=== PATIENT | female | born 1955 | race Caucasian/White ===

== ENCOUNTER 2020-07-04 01:26 | Emergency (ER) | payer OTHER ==
[~2020-07-04] VITALS: Ht 160 cm; Wt 61.3 kg
[2020-07-04] MEDS ORDERED: LEVO-101 PO (01:55)
[2020-07-04] MEDS ORDERED: TRIA1CAP3 PO (01:56)
[2020-07-04] MEDS ORDERED: MONT10TA49 PO (01:56)
[2020-07-04] MEDS ORDERED: CALC-450 PO (01:57)
[2020-07-04] MEDS ORDERED: VIT D (01:57)
[2020-07-04] MEDS ORDERED: LORA10TA55 PO (01:57)
[2020-07-04] MEDS ORDERED: LINZESS145 MCG PO (01:58)
[2020-07-04] MEDS ORDERED: GABA-585 PO (02:23)
[2020-07-04] MEDS ORDERED: CYCL5TAB PO (02:23)
[2020-07-04] MEDS ORDERED: LIDO700A21 TP (02:23)
--- NOTE | 2020-07-04 02:26 | PHYS DOC ---
Past Medical History Past Medical History: Hypothyroid Past Surgical History: , Tonsillectomy Additional Past Surgical Histo: "BENJAMIN TUCK" Smoking Status: Never Smoker Alcohol Use: None General Adult EDM: Chief Complaint: UPPER EXTREMITY INJURY HPI: HPI: 65-year-old female who presents for evaluation of proximal right upper extremity pain, atraumatic. On May 23, she underwent MRI of her cervical spine that revealed degenerative disc disease most prominent at C5/C6, greatest in the right. She is currently on a steroid Dosepak, [place], low-dose gabapentin. She reports ongoing and worsening pain. The pain radiates from the right neck, around the right shoulder and scapula and ends just proximal to the antecubital fossa. She has previously been evaluated by Dr. Jackson. Review of Systems: Review of Systems: Gen: No fever, chills. Eyes: No blurred vision, diplopia. ENT: No nasal congestion, sore throat. CV: No CP, palpitations. Resp. No SOB, cough. GI: No abd pain, N/V. Neuro: No ALVAREZ, dizziness, weakness. MSK: No neck or back pain. Reports proximal right upper extremity pain. Skin: No acute rash or lesion. Heart Score: Risk Factors: Risk Factors: DM, Current or recent (<one month) smoker, HTN, HLP, family history of CAD, obesity. Risk Scores: Score 0 - 3: 2.5% MACE over next 6 weeks - Discharge Home Score 4 - 6: 20.3% MACE over next 6 weeks - Admit for Clinical Observation Score 7 - 10: 72.7% MACE over next 6 weeks - Early Invasive Strategies Allergies: Allergies: Allergies Coded Allergies Type Severity Reaction Last Updated Verified latex Allergy Intermediate HIVES BLISTERS RASH 07/04/20 Yes Physical Exam: PE: Gen: NAD. Well nourished. Head: NC/AT. Eyes: No scleral icterus. No conjunctival injection. ENT: MMM. Posterior OP clear. Neck: Supple. NT. No JVD. CV: RRR Peripheral pulses intact. Resp: CTAB. MSK: No peripheral cyanosis. No edema. No focal tenderness of the proximal right upper extremity, no acute skin changes. No midline neck tenderness. Full AROM of RUE. Neuro: A&Ox3. Strength & sensation grossly intact throughout. Skin. Warm. Dry. No acute rash. Psych: Appropriate mood & affect. Current Patient Data: Vital Signs: Vital Signs Date Time Temp Pulse Resp B/P (MAP) Pulse Ox O2 Delivery O2 Flow Rate FiO2 07/04/20 01:49 98.1 86 20 130/75 (93) 97 Room Air 98.1 EKG: EKG: [] Radiology/Procedures: Radiology/Procedures: [] Course & Med Decision Making: Course & Med Decision Making In summary, 65-year-old female who presents for evaluation of worsening neuro pathic pain from a disc protrusion at C5-6 on MRI in May 23. Currently on low-dose gabapentin, [place], steroid Dosepak. Will be administered low-dose Flexeril, IM morphine, lidocaine patch. Will titrate her gabapentin dose to 300 mg 3 times daily, with the addition of prescribed lidocaine patch and Flexeril. Outpatient follow-up with Dr. Jackson. Return precautions given. Dragon Disclaimer: Dragon Disclaimer: This electronic medical record was generated, in whole or in part, using a voice recognition dictation system. Departure Departure Impression: Primary Impression: Degenerative cervical disc Additional Impression: Neuropathic pain Disposition: HOME, SELF-CARE Condition: STABLE Referrals: BONNY GALAVIZ MD (PCP) RENARD JACKSON MD Patient Instructions: Pain, Neuropathic-Brief Additional Instructions: Increase your gabapentin regimen by taking 100 mg in the morning, 100 mg in the afternoon, and 300 mg at night (either one tab of your 300 mg tabs, or three tabs of your 100 mg tabs). Continue your previously prescribed steroid and hydrocodone. Apply the prescribed lidocaine patch. Take the prescribed muscle relaxant as needed (cyclobenzaprine/flexeril). Please follow up with Dr. Jackson. Scripts Cyclobenzaprine Hcl (CYCLOBENZAPRINE HCL) 5 Mg Tablet 1 TAB PO TID, #30 TAB Prov: LE,SUBHASH H DO 07/04/20 Lidocaine (Lidocaine PATCH ) 1 Each Adh..patch 1 EACH TP DAILY for FOR LOCAL PAIN, #10 PATCH REMOVE AFTER 12 HOURS Prov: LE,SUBHASH H DO 07/04/20 Gabapentin (GABAPENTIN ) 100 Mg Capsule 100 MG PO TID for NEUROGENIC PAIN, #60 CAP Prov: LE,SUBHASH H DO 07/04/20 Justicifation of Admission Dx: Justifications for Admission: Justification of Admission Dx: N/A SUBHASH GUZMAN DO Jul 04, 2020 02:26
[2020-07-04] MEDS ORDERED: MORPHINE SULFATE 4 MG/ML VIAL. IM ONE (02:30)
[2020-07-04] MEDS ORDERED: CYCLOBENZAPRINE 10 MG TABLET. PO ONE (02:30)
[2020-07-04] MEDS ORDERED: LIDOCAINE (700MG/PATCH) PATCH. TD SCH (02:30)
[2020-07-04 03:18] VITALS: BP 131/81
[2020-07-04] MEDS ORDERED: LIDOCAINE (700MG/PATCH) PATCH. TD ONE (03:30)
== END 2020-07-04 03:19 | disposition home or self-care (01) ==
LOC: ER 01:26
DX: M50.30 Other cervical disc degeneration, unspecified cervical region (principal); M79.601 Pain in right arm; G62.9 Polyneuropathy, unspecified; E03.9 Hypothyroidism, unspecified; Z98.890 Other specified postprocedural states; Z91.040 Latex allergy status
CPT/HCPCS: 96372; 99283; J2270

== ENCOUNTER → 2020-07-27 | Outpatient (CLI) | payer OTHER ==
[2020-07-04 03:18] VITALS: BP 131/81
[~2020-07-27] MED LIST: CALC-450 PO; CYCL5TAB PO; DOCU-153 PO; GABA-585 PO; GABA600T7 PO; HYDR-2761 PO; LEVO-101 PO; LIDO700A21 TP; LINZESS145 MCG PO; LORA10TA55 PO; METH750T2 PO; MONT10TA49 PO; TRAM50TA PO; TRIA1CAP3 PO; VIT D; VITA1TAB31 PO
[2020-07-27 11:05] LABS: BASO % 1 % (0-3); EOS # 0.1 x10^3/uL (0.0-0.7); EOS % 3 % (0-3); HEMATOCRIT 39.1 % (36.0-47.0); HEMOGLOBIN 13.1 g/dL (12.0-15.5); LYMPH # 1.1 x10^3/uL (1.0-4.8); LYMPH % 29 % (24-48); MEAN CORPUSCULAR HEMOGLOBIN 31 pg (25-35); MEAN CORPUSCULAR HGB CONC 34 g/dL (31-37); MEAN CORPUSCULAR VOLUME 91 fL (79-100); MONO # 0.4 x10^3/uL (0.0-1.1); MONO % 11 % (0-9); NEUT # 2.2 x10^3/uL (1.8-7.7); NEUT % 57 % (31-73); PLATELET COUNT 261 x10^3/uL (140-400); RED CELL DISTRIBUTION WIDTH 14.2 % (11.5-14.5); WHITE BLOOD COUNT 3.8 x10^3/uL (4.0-11.0)
[2020-07-27 11:30] LABS: ALBUMIN 3.8 g/dL (3.4-5.0); ALBUMIN/GLOBULIN RATIO 1.3 (1.0-1.7); CALCIUM 9.3 mg/dL (8.5-10.1); CREATININE 0.8 mg/dL (0.6-1.0); GFR 72.2; POTASSIUM 3.7 mmol/L (3.5-5.1); TOTAL BILIRUBIN 0.4 mg/dL (0.2-1.0); TOTAL PROTEIN 6.7 g/dL (6.4-8.2)
== END ==
LOC: SURGPAT 09:59
PROVIDERS: ATTEND Neurological Surgery
DX: Z01.812 Encounter for preprocedural laboratory examination (principal); M50.122 Cervical disc disorder at C5-C6 level with radiculopathy; M50.121 Cervical disc disorder at C4-C5 level with radiculopathy; M43.22 Fusion of spine, cervical region
CPT/HCPCS: 80053; 85025; 87641; U0003

== ENCOUNTER 2020-08-01 10:25 | Observation (INO) | payer OTHER ==
[~2020-08-01] VITALS: Ht 165.1 cm; Wt 64.8 kg
[2020-08-01] VITALS (10 sets, daily range): BP systolic 118–143; BP diastolic 72–81
--- NOTE | 2020-08-01 09:49 | HP ---
ADMIT DATE: 08/01/2020 DATE OF SURGERY: 08/01/2020 HISTORY OF PRESENT ILLNESS: The patient is a pleasant 65-year-old, who has right arm and shoulder pain. She describes it as a throbbing, electrical type pain. She has numbness in both of her feet, which has been present for about 8 years. She says her pain is constant, 4/10, but can reach at 20/10. There is nothing that helps her. She was taking hydrocodone, but it causes severe constipation. She did physical therapy, which was not helpful for her. PAST MEDICAL HISTORY: Headaches, hypertension, thyroid disease, Barnett's esophagus. PAST SURGICAL HISTORY: Tonsillectomy in 1965, in 1983, abdominoplasty in 2008. FAMILY HISTORY: Diabetes. 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 . Does not smoke. Drinks alcohol 1-2 times per year. ALLERGIES: LATEX. CURRENT MEDICATIONS: Medrol Dosepak and [place]. REVIEW OF SYSTEMS: A 12-point review of systems was obtained and is noncontributory except for that mentioned above. PHYSICAL EXAMINATION: NEUROSURGERY EXAMINATION: GENERAL APPEARANCE: Alert, pleasant, no acute distress. HEAD: Normocephalic and atraumatic. NECK AND THYROID: Uhvp-lo-aglutgbu tenderness with palpation of posterior cervical region. SKIN: Warm and dry. MUSCULOSKELETAL: Cervical paraspinal muscle bulk is normal, restricted range of motion of the cervical spine, normal range of motion of the upper extremities bilaterally. EXTREMITIES: No clubbing, cyanosis, or edema. NEUROLOGIC: Alert and oriented x 3, normal recent and remote memory, strength is 5/5 in bilateral upper and lower extremities, sensory was intact to light touch in the upper and lower extremities, reflexes were present and symmetric in the upper and lower extremities bilaterally, normal gait. IMAGING: I reviewed a cervical MRI scan. On that study at C5-C6, there is a broad-based right paracentral lateral recess disc protrusion. There is severe central spinal stenosis with effacement of the exiting right C6 nerve root. There is moderate to severe right and moderate left neural foraminal stenosis. At C4-C5, there is [id number] right and severe left neural foraminal stenosis with effacement of the exiting left C5 nerve root due to hypertrophic degenerative changes. ASSESSMENT/ PLAN: Her pain is worsening despite physical therapy and time. She has been in the Emergency Room. I recommended a 2-level anterior cervical discectomy and fusion at C4-C5 and C5-C6. We spoke about the risks, technique and expected postoperative course. She understands. She would like to go ahead. We will make the arrangements. RENARD JACKSON MD DR: GRIS/carissa JOB#: [id number] / [id number] MARGARITA
[~2020-08-01 10:25] MED LIST changes: +BACITRACIN 50,000 UNIT in IV NORMAL SALINE 1000ML BAG 1,000 ML IRR ONE; -DOCU-153 PO; +GELATIN SPONGE SIZE 100. ONE; +HYDROmorphone 2 MG/ML VIAL IV PRN; +LIDOCAINE 1% PF 2 ML VIAL. ID PRN; -METH750T2 PO; +ONDANSETRON PF 4 MG/2 ML VIAL. IV PRN; +THROMBIN TOPICAL 20,000 UNIT SPRAY.SYRN KIT TP ONE; -TRAM50TA PO; +fentaNYL PF VIAL 100 MCG/2 ML VIAL IV PRN
[2020-08-01] MEDS: IV RINGERS,LACTATED 1000ML 1,000 ML IV SCH ×2 (11:03→16:49)
[2020-08-01] MEDS ORDERED: BUPIVACAINE-EPI 0.5%-1:200000 MPF 30 ML VIAL. INJ ONE (11:45)
[2020-08-01] MEDS ORDERED: LIDOCAINE 2% PF 5 ML VIAL. ONE (11:55)
[2020-08-01] MEDS ORDERED: fentaNYL PF VIAL 100 MCG/2 ML VIAL ONE ×3 (11:55→16:41)
[2020-08-01] MEDS ORDERED: PROPOFOL 10 MG/ML (20ML) VIAL. IV ONE (11:55)
[2020-08-01] MEDS ORDERED: ROCURONIUM 50 MG/5 ML VIAL. ONE (11:56)
[2020-08-01] MEDS ORDERED: SUCCINYLCHOLINE 200 MG/10 ML VIAL. ONE (11:56)
[2020-08-01] MEDS ORDERED: REMIFENTANIL 1 MG VIAL. IV ONE ×2 (11:58→14:55)
[2020-08-01] MEDS ORDERED: 0.9 % SODIUM CHLORIDE 20 ML VIAL. IJ ONE (11:59)
[2020-08-01] MEDS ORDERED: PHENYLEPHRINE 10 MG/ML VIAL. ONE (12:04)
[2020-08-01] MEDS ORDERED: PROPOFOL 50 ML IV ONE ×3 (12:08→15:27)
[2020-08-01] MEDS ORDERED: ONDANSETRON PF 4 MG/2 ML VIAL. ONE (13:54)
[2020-08-01] MEDS ORDERED: PROCHLORPERAZINE 10 MG/2 ML VIAL. ONE (16:33)
[2020-08-01] MEDS ORDERED: MORPHINE SULFATE 2 MG/ML VIAL. ONE (16:34)
[2020-08-01] MEDS ORDERED: diphenhydrAMINE HCL 25 MG CAPSULE PO PRN (16:45)
[2020-08-01] MEDS ORDERED: CALCIUM CARBONATE 500 MG TAB.CHEW PO PRN (16:45)
[2020-08-01] MEDS ORDERED: MAGNESIUM HYDROXIDE 2,400 MG/30 ML ORAL.SUSP. PO PRN (16:45)
[2020-08-01] MEDS ORDERED: ONDANSETRON PF 4 MG/2 ML VIAL. IVP PRN (16:45)
[2020-08-01] MEDS ORDERED: HYDROcodone/APAP 7.5/325MG 1 TAB TABLET PO PRN ×2 (16:45)
[2020-08-01] MEDS ORDERED: NALOXONE 0.4 MG/ML VIAL. IV PRN (16:45)
[2020-08-01] MEDS ORDERED: MAG HYDROX/ALUMINUM HYD/SIMETH 30 ML ORAL.SUSP PO PRN (16:45)
[2020-08-01] MEDS ORDERED: METHOCARBAMOL 750 MG TABLET PO PRN (16:45)
[2020-08-01] MEDS ORDERED: 0.9 % SODIUM CHLORIDE 10 ML DISP.SYRIN. IV PRN (16:45)
[2020-08-01] MEDS: MORPHINE SULFATE 2 MG/ML VIAL. IV PRN ×2 (16:50→17:12)
[2020-08-01] MEDS: PROCHLORPERAZINE 10 MG/2 ML VIAL. IV PRN ×2 (16:50→17:10)
[2020-08-01] MEDS: fentaNYL PF VIAL 100 MCG/2 ML VIAL IV PRN ×2 (16:51→17:11)
[2020-08-01] MEDS ORDERED: HYDROmorphone 2 MG/ML VIAL ONE (17:22)
--- NOTE | 2020-08-01 18:32 | NUR ---
received from recovery. she is rating her pain a "6". medicated with Dilaudid prior to arrival. she has good strength, pulses and motion bilateral arms. states she never had problems with fine motor skills. pain is centered between her shoulder blades and her right shoulder. refused ice at this time. instructed finisher fine diamond dies light and not to get up by herself. frequent vs started. dressing to the anterior neck is clean dry and intact. soft collar in place
[2020-08-01] MEDS ORDERED: GABAPENTIN 300 MG CAPSULE. PO SCH (21:00)
[2020-08-01] MEDS ORDERED: MONTELUKAST SODIUM 10 MG TABLET. PO SCH (21:00)
[2020-08-01] MEDS: DOCUSATE SODIUM 100 MG CAPSULE. PO SCH (21:16)
[2020-08-01] MEDS: fentaNYL PF VIAL 100 MCG/2 ML VIAL IVP PRN (21:16)
[2020-08-01] MEDS: ceFAZolin SODIUM IV Push 1 GM VIAL. IVP SCH (21:19)
[2020-08-02] MEDS: POTASSIUM CL 20MEQ D5-0.45NACL 1,000 ML IV SCH ×2 (00:36→06:00)
[2020-08-02 03:17] VITALS: BP 132/71
[2020-08-02] MEDS: ACETAMINOPHEN 325 MG TABLET. PO PRN ×2 (03:23→12:03)
[2020-08-02] MEDS: fentaNYL PF VIAL 100 MCG/2 ML VIAL IVP PRN ×2 (03:24→07:45)
[2020-08-02] MEDS ORDERED: LEVOTHYROXINE 100 MCG TABLET PO SCH (06:00)
[2020-08-02] MEDS: ceFAZolin SODIUM IV Push 1 GM VIAL. IVP SCH ×2 (06:25→14:00)
[2020-08-02 06:28] VITALS: BP 114/66
[2020-08-02] MEDS ORDERED: LUBIPROSTONE 24 MCG CAPSULE PO SCH (08:00)
[2020-08-02] MEDS ORDERED: CHOLECALCIFEROL (VITAMIN D3) 1,000 UNIT TABLET PO SCH (09:00)
[2020-08-02] MEDS ORDERED: LIDOCAINE (700MG/PATCH) PATCH. TP SCH (09:00)
[2020-08-02] MEDS ORDERED: TRIAMTERENE/HCTZ 37.5/25MG TABLET. PO SCH (09:00)
[2020-08-02] MEDS: DOCUSATE SODIUM 100 MG CAPSULE. PO SCH (09:00)
[2020-08-02] MEDS: GABAPENTIN 100 MG CAPSULE. PO SCH ×2 (09:00→13:00)
--- NOTE | 2020-08-02 09:00 | NUR ---
awake. linden is at bedside. she wants to know when she can go home. she was sleeping earlier. states not having pain but cannot get comfortable. reviewed discharge instructions dressing to incision is clean and dry. When does the doctor get here. doesnt want her medications--will take at home.
[2020-08-02 10:58] VITALS: BP 133/76
--- NOTE | 2020-08-02 12:21 | NUR ---
Chuckie returns from appt. they want to go home. explained needed script for tramadol and Robaxin. awaiting he is finishing surgery and will be up in hour. "guys trying to kill me" I cant get comfortable. refused hydrocodone, Neurontin, lidocaine patch. gave 2 Tylenol and muscle relaxant. saline lock removed. instructed to go ahead and get dressed. awaiting
[2020-08-02] MEDS ORDERED: METH750T2 PO (14:23)
[2020-08-02] MEDS ORDERED: TRAM50TA PO (14:23)
[2020-08-02] MEDS ORDERED: DOCU-153 PO (14:23)
--- NOTE | 2020-08-02 14:25 | DISCH ---
DISCHARGE INSTRUCTIONS Condition on Discharge Condition on Discharge: Stable Activity After Discharge Activity Instructions for Disc: Activity as tolerated, Avoid exertion, Walk in house Other activity instructions: ambulation only exercise; gradually increase time and distance Bathing Instructions: Shower-keep dressing dry Lifting Instructions after Dis: No heavy lifting, No pulling or pushing, Do not lift >10 pounds Exercise Instruction after Dis: Progress as tolerated Driving Instructions after Dis: No driving for 2 weeks Weight Bearing Status after Di: No restrictions, Full weight bearing, As tolerated Diet after Discharge Diet after Discharge: Regular Wound Incision Care Wound/Incision Care: Ice to area for comfort, Keep wound/cast CDI Other wound/incision instructi: may remove dressing after shower, no direct water or antibiotic cream/ointm Wound Care Equipment: Dressings Contacting the DRPenny after DC Call your doctor for: Concerns you may have Follow-Up Follow Up With: call [phone] for a 2 week post op appt with Dr. Jackson's nurse Treatment/Equipment after DC Adaptive Equipment Issued: None RENARD JACKSON MD Aug 02, 2020 14:24
--- NOTE | 2020-08-02 14:49 | NUR ---
reviewed discharge instructions. scripts dressings given. dismissed to home
--- NOTE | 2020-08-07 10:08 | PATHOLOGY ---
[facility] Accession Number: [id number] . 01 Material submitted: . vertebral column - CERVICAL DISC . 01 Clinical history: . CERVICAL HERNIATED DISC RADICULOPATHY . 02 Diagnosis: Bone and soft tissue "cervical disc C4-5, C5-6", excision: - Fibrocartilage with reactive/regenerative changes. - Unremarkable fragments of trabecular bone. (MLK:yane; 08/06/2020) MBR 08/06/2020 1807 Local . 02 Electronically signed: . Gege Nur MD, Pathologist NPI- [id number] . 01 Gross description: . Received in formalin labeled "Caroline Stringer, cervical disc" is a 2.7 x 2.5 x 0.3 cm aggregate of ngo-white friable soft tissue fragments. The specimen is submitted entirely in cassette A1. ([facility] [place]; 08/02/2020) SYC/SYC 08/02/2020 1841 Local . 02 Pathologist provided ICD-10: M50.30 . 02 CPT . 803589 Specimen Comment: A courtesy copy of this report has been sent to [phone], [phone] Specimen Comment: [id number] Specimen Comment: Report sent to / DR GALAVIZ Performed at: [address] [facility], [place], [place] [id number] MD Leonel Mariano MD Phone: [phone] Performed at: [address] [facility] [id number] MD Anamaria Veras MD Phone: [phone]
--- NOTE | 2020-08-08 20:16 | OP ---
DATE OF SURGERY: PREOPERATIVE DIAGNOSES: Cervical spinal stenosis and right cervical radiculopathy, C4-C5, C5-C6. POSTOPERATIVE DIAGNOSES: Cervical spinal stenosis and right cervical radiculopathy C3-C4, C4-C5, C5-C6. OPERATION PERFORMED: Anterior cervical microdiskectomy C4-C5, C5-C6; anterior cervical interbody fusion, C4-C5, C5-C6; anterior cervical plate, C4, C5, C6. The operation was done with EMG monitoring, SSEP monitoring, motor evoked potentials, fluoroscopy, microscopic dissection. X RAY CONSULTANT: STAR Leonard assisted with the surgery. She assisted with the exposure, the 2-level microdiskectomy and fusion as well as the closure. OPERATIVE INDICATIONS: The patient is a pleasant 65-year-old, who has been having difficulty with neck and right arm pain for a considerable. The problem has been gradually worsening despite conservative measures including physical therapy. On imaging studies, she had a broad-based right paracentral and lateral disk protrusion at C5-C6 as well as severe spinal stenosis. At C4-C5, there was lateral recess assuming there is severe left foraminal stenosis and hypertrophic degenerative changes. I recommended a 2-level ACDF. I spoke with her about the surgery, the risks, the technique and the expected postoperative course. She wished to go ahead. DESCRIPTION OF PROCEDURE: Following general endotracheal anesthesia, the patient was positioned supine on the operating room table and the neck was in a neutral position. The anterior cervical region was prepped and draped in standard fashion. ANTONINO hose and AV impulse boots were applied for DVT prophylaxis. The microscope was draped. Fluoroscopy was draped and brought into the field. Monitoring was established. Ancef 2 grams was given less than 1 hour prior to initiation of the surgery. Using fluoroscopic guidance, incision was made from the midline around to the right side in a skin crease. I dissected around the medial aspect of the sternocleidomastoid and carotid artery sheath down the anterior cervical vertebral body. I reflected the trachea and esophagus contralaterally exposed the anterior bony architecture and obtained fluoroscopic images to confirm my position. I placed anterior cervical retractors wedged in the longus colli muscle at C5-C6 and placed distraction pins in C5 and C6. I brought in the microscope during this time. I incised the annulus with #11 blade. I distracted the disk space slightly and then using the high-speed drill, I drilled away the anterior spurring. I used pituitaries as well as endplate scrapers and removed disk and worked posteriorly the posterior spurring. I drilled with a high speed air drill through the microscope using microscopic technique. I used 1 and 2 mm micro Kerrison's to open the ligament and annulus and worked laterally bilaterally. There was a hard disk on the right side, which I gently freed and began to trim away and removed and eventually I was able to remove. I worked superiorly and inferiorly and trimmed away the bone spurring and as I worked, the region became very well decompressed. I assured myself that the foramina were open. I prepared the endplates for fusion. After perfect hemostasis, it had been obtained. I tapped into position, a 6-mm interbody fusion cage with allograft bone and then I removed the pin from C6 and removed the retractors up to C4-C5 and placed the pin into C4, distracted the disk space at this level. I performed the identical operation. I trimmed laterally bilaterally. I did open the ligament and annulus and I assured myself that the C4-C5 was well decompressed. Again, I placed interbody fusion cage packed with allograft bone and then I placed an anterior plate using the [place] system with 14 mm screws superiorly and inferiorly placed first followed by the remaining screws, which were then locked into position. I obtained fluoroscopic images and I felt that the superior portion of the plate could be placed more flush and I did unlock that portion and I gently was able to stop down the superior portion of the plate without difficulty. I tightened the screws, V-Loc the screws and at this point, then I irrigated copiously with antibiotic solution, removed the retractor. Hemostasis was absolutely perfect. I closed the wounds in layers. The skin was closed with 4-0 subcuticular stitch. The surgery went very well and the monitoring was excellent throughout. I was quite pleased with the surgery. RENARD JACKSON MD DR: GRIS/carissa JOB#: [id number] / [id number]
== END 2020-08-02 14:52 | disposition home or self-care (01) ==
LOC: SURG 10:25 → 4 SOUTHEST 16:56
PROVIDERS: ADMIT Neurological Surgery; ATTEND Neurological Surgery
DX: M48.02 Spinal stenosis, cervical region (principal); M50.122 Cervical disc disorder at C5-C6 level with radiculopathy; M79.601 Pain in right arm; I10 Essential (primary) hypertension; K22.70 Barrett's esophagus without dysplasia; E07.9 Disorder of thyroid, unspecified; Z90.49 Acquired absence of other specified parts of digestive tract; Z98.891 History of uterine scar from previous surgery
CPT/HCPCS: 20931; 22551; 22552; 22853; 76000; 88304; 96361; 96374; 96375; 96376; 97161; A7015; C1713; G0378; G0379; J0330; J0690; J0780; J1170; J2270; J2370; J2405; J2704; J3010; J3480; J3490; J7030; J7120

== ENCOUNTER 2022-01-16 20:35 | Emergency (ER) | payer MEDICARE, OTHER ==
[~2022-01-16] VITALS: Ht 160 cm; Wt 63.6 kg
[~2022-01-16 20:35] MED LIST changes: -BACITRACIN 50,000 UNIT in IV NORMAL SALINE 1000ML BAG 1,000 ML IRR ONE; +DOCU-148 PO; -GELATIN SPONGE SIZE 100. ONE; -HYDROmorphone 2 MG/ML VIAL IV PRN; -LIDOCAINE 1% PF 2 ML VIAL. ID PRN; +LORA-169 PO; -LORA10TA55 PO; +METH-562 PO; -ONDANSETRON PF 4 MG/2 ML VIAL. IV PRN; -THROMBIN TOPICAL 20,000 UNIT SPRAY.SYRN KIT TP ONE; +TRAM50TA PO; -fentaNYL PF VIAL 100 MCG/2 ML VIAL IV PRN
[2022-01-16 21:21] LABS: BASO # 0.1 x10^3/uL (0.0-0.2); BASO % 1 % (0-3); EOS # 0.1 x10^3/uL (0.0-0.7); EOS % 1 % (0-3); HEMATOCRIT 43.3 % (36.0-47.0); HEMOGLOBIN 14.4 g/dL (12.0-15.5); LYMPH # 1.4 x10^3/uL (1.0-4.8); LYMPH % 10 % (24-48); MEAN CORPUSCULAR HEMOGLOBIN 30 pg (25-35); MEAN CORPUSCULAR HGB CONC 33 g/dL (31-37); MEAN CORPUSCULAR VOLUME 90 fL (79-100); MONO # 0.8 x10^3/uL (0.0-1.1); MONO % 6 % (0-9); NEUT # 11.1 x10^3/uL (1.8-7.7); NEUT % 82 % (31-73); PLATELET COUNT 317 x10^3/uL (140-400); RED BLOOD COUNT 4.81 x10^6/uL (3.50-5.40); RED CELL DISTRIBUTION WIDTH 13.4 % (11.5-14.5); WHITE BLOOD COUNT 13.5 x10^3/uL (4.0-11.0)
[2022-01-16] MEDS ORDERED: fentaNYL PF VIAL 100 MCG/2 ML VIAL IVP ONE (21:30)
[2022-01-16] MEDS ORDERED: ONDANSETRON PF 4 MG/2 ML VIAL. IVP ONE (21:30)
[2022-01-16] MEDS ORDERED: FAMOTIDINE 20 MG/2 ML VIAL IVP ONE (21:30)
[2022-01-16 21:32] LABS: CALCIUM 10.4 mg/dL (8.5-10.1); CREATININE 0.7 mg/dL (0.6-1.0); POTASSIUM 3.5 mmol/L (3.5-5.1)
[2022-01-16 21:39] LABS: ALBUMIN 4.3 g/dL (3.4-5.0); ALBUMIN/GLOBULIN RATIO 1.5 (1.0-1.7); MAGNESIUM 2.2 mg/dL (1.8-2.4); TOTAL BILIRUBIN 0.5 mg/dL (0.2-1.0); TOTAL PROTEIN 7.1 g/dL (6.4-8.2)
--- NOTE | 2022-01-16 21:48 | RAD ---
XR CHEST 1V 01/16/2022 9:23 PM INDICATION: Weakness COMPARISON: None available TECHNIQUE: Portable frontal view of the chest is provided. FINDINGS: The cardiomediastinal silhouette is within normal limits. Lungs are clear. There are no significant pleural effusions. There is no pulmonary vascular congestion. No pneumothora x. No suspicious osseous abnormality. Anterior cervical discectomy and fusion hardware is partially prof iled. IMPRESSION: There is no acute cardiopulmonary process. Electronically signed by: Yajaira Cruz MD (01/16/2022 9:46 PM) TIFFANY
[2022-01-16] MEDS ORDERED: IOHEXOL 300 MG/ML 100ML VIAL. IV ONE (22:30)
[2022-01-16] MEDS ORDERED: CONTRAST GIVEN. MC PRN (22:45)
--- NOTE | 2022-01-16 23:08 | RAD ---
PQRS Compliance Statement: One or more of the following individualized dose reduction techniques were utilized for this examinat ion: 1. Automated exposure control 2. Adjustment of the mA and/or kV according to patient size 3. Use of iterative reconstruction technique CT abdomen/pelvis with contrast 01/16/2022 10:31 PM INDICATION: Nausea and vomiting COMPARISON: None available TECHNIQUE: Multiple axial CT images of the abdomen and pelvis were obtained after the intravenous adm inistration of 75 mL Omnipaque 300. Coronal and sagittal reformats are provided. FINDINGS: Visualized portions of the lung bases are clear. Heart size is within normal limits. 1.4 cm hypoattenuating lesion within the inferior right hepatic lobe compatible with simple cyst (10 Hounsfield units). Liver is homogeneous in enhancement. Spleen, bilateral adrenal glands, and pancrea s are normal in appearance. Gallbladder is present without adjacent inflammatory changes. The abdominal aorta is normal in course and caliber. There are no pathologically enlarged lymph nodes in the abdomen and pelvis. There is no abdominal free fluid. There is no free intraperitoneal air. Bilateral renal parapelvic cysts are identified. The kidneys enhance symmetrically. There is no suspi cious renal mass. There is no hydronephrosis. There are no suspected calculi within the kidneys, uret ers or urinary bladder. Calcified uterine fibroids are present measuring up to 1.8 cm. No suspicious adnexal mass. Urinary bladder is within normal limits given degree of distention. No suspicious osseous normality. IMPRESSION: No acute abnormality within the abdomen and pelvis. Electronically signed by: Yajaira Cruz MD (01/16/2022 11:05 PM) [facility]
--- NOTE | 2022-01-16 23:45 | PHYS DOC ---
Past Medical History Past Medical History: Hypothyroid (BENJIE BENITEZ SHANK CUTTER) Past Surgical History: No Surgical History, , Tonsillectomy Additional Past Surgical Histo: "TUMMY TUCK" (BENJIE BENITEZ SHANK CUTTER) Smoking Status: Never Smoker Alcohol Use: None (BENJIE BENITEZ SHANK CUTTER) General Adult EDM: Chief Complaint: MULTIPLE COMPLAINTS HPI: HPI: Patient is a 66 year old female with history of hypothyroidism presenting to the ED today complaining of nausea, upset stomach, feeling of fullness, dizziness, symptoms have been going on intermittently for 6 weeks. Patient states she has been seen by her own doctor and they have done many scans and they could not find any cause for her symptoms. Denies any vomiting, diarrhea. Denies any fever. Denies any chest pain or shortness of breath. (BENJIE BENITEZ SHANK CUTTER) Review of Systems: Review of Systems: Constitutional: Denies fever or chills. [] Eyes: Denies change in visual acuity. [] HENT: Denies nasal congestion or sore throat. [] Respiratory: Denies cough or shortness of breath. [] Cardiovascular: Denies chest pain or edema. [] GI: Reports upset stomach, feeling of fullness, nausea, denies vomiting, bloody stools or diarrhea. [] : Denies dysuria. [] Musculoskeletal: Denies back pain or joint pain. [] Integument: Denies rash. [] Neurologic: Reports dizziness. Denies headache, focal weakness or sensory changes. [] [] Psychiatric: Denies depression or anxiety. [] (BENJIE BENITEZ SHANK CUTTER) Heart Score: C/O Chest Pain: N/A Risk Factors: Risk Factors: DM, Current or recent (<one month) smoker, HTN, HLP, family history of CAD, obesity. Risk Scores: Score 0 - 3: 2.5% MACE over next 6 weeks - Discharge Home Score 4 - 6: 20.3% MACE over next 6 weeks - Admit for Clinical Observation Score 7 - 10: 72.7% MACE over next 6 weeks - Early Invasive Strategies (BENJIE BENITEZ Vicky SHANK CUTTER) Current Medications: Current Medications Medications (Trade) Dose Ordered Sig/Adriana Start Time Stop Time Status Last Admin Dose Admin Famotidine (Pepcid Vial) 20 mg 1X ONCE 01/16/22 21:30 01/16/22 21:31 DC 01/16/22 21:24 20 MG Fentanyl Citrate (Fentanyl 2ml Vial) 50 mcg 1X ONCE 01/16/22 21:30 01/16/22 21:31 DC Info (CONTRAST GIVEN -- Rx MONITORING) 1 each PRN DAILY PRN 01/16/22 22:45 01/18/22 22:44 Iohexol (Omnipaque 300 Mg/ml) 75 ml 1X ONCE 01/16/22 22:30 01/16/22 22:32 DC 01/16/22 22:41 75 ML Ondansetron HCl (Zofran) 4 mg 1X ONCE 01/16/22 21:30 01/16/22 21:31 DC 01/16/22 21:21 4 MG (MUTUNGA,BENJIE M SHANK CUTTER) Allergies: Allergies: Allergies Coded Allergies Type Severity Reaction Last Updated Verified latex Allergy Intermediate HIVES BLISTERS RASH 08/01/20 Yes (MUTUNGA,BENJIE M SHANK CUTTER) Physical Exam: PE: Constitutional: Well developed, well nourished, no acute distress, non-toxic appearance. [] HENT: Normocephalic, atraumatic, bilateral external ears normal, oropharynx moist, no oral exudates, nose normal. [] Eyes: PERRLA, EOMI, conjunctiva normal, no discharge. [] Neck: Normal range of motion, no tenderness, supple, no stridor. [] Cardiovascular:Heart rate regular rhythm, no murmur [] Lungs & Thorax: Bilateral breath sounds clear to auscultation [] Abdomen: Bowel sounds normal, soft, no tenderness, no masses, no pulsatile masses. [] Skin: Warm, dry, no erythema, no rash. [] Back: No tenderness, no CVA tenderness. [] Extremities: No tenderness, no cyanosis, no clubbing, ROM intact, no edema. [] Neurologic: Alert and oriented X 3, normal motor function, normal sensory function, no focal deficits noted. Cranial nerves II through XII intact Psychologic: Affect normal, judgement normal, mood normal. [] (MUTUNGA,BENJIE M SHANK CUTTER) Current Patient Data: Labs: Laboratory Tests Test 01/16/22 21:12 White Blood Count 13.5 x10^3/uL (4.0-11.0) H Red Blood Count 4.81 x10^6/uL (3.50-5.40) Hemoglobin 14.4 g/dL (12.0-15.5) Hematocrit 43.3 % (36.0-47.0) Mean Corpuscular Volume 90 fL (79-100) Mean Corpuscular Hemoglobin 30 pg (25-35) Mean Corpuscular Hemoglobin Concent 33 g/dL (31-37) Red Cell Distribution Width 13.4 % (11.5-14.5) Platelet Count 317 x10^3/uL (140-400) Neutrophils (%) (Auto) 82 % (31-73) H Lymphocytes (%) (Auto) 10 % (24-48) L Monocytes (%) (Auto) 6 % (0-9) Eosinophils (%) (Auto) 1 % (0-3) Basophils (%) (Auto) 1 % (0-3) Neutrophils # (Auto) 11.1 x10^3/uL (1.8-7.7) H Lymphocytes # (Auto) 1.4 x10^3/uL (1.0-4.8) Monocytes # (Auto) 0.8 x10^3/uL (0.0-1.1) Eosinophils # (Auto) 0.1 x10^3/uL (0.0-0.7) Basophils # (Auto) 0.1 x10^3/uL (0.0-0.2) Sodium Level 140 mmol/L (136-145) Potassium Level 3.5 mmol/L (3.5-5.1) Chloride Level 101 mmol/L (98-107) Carbon Dioxide Level 29 mmol/L (21-32) Anion Gap 10 (6-14) Blood Urea Nitrogen 25 mg/dL (7-20) H Creatinine 0.7 mg/dL (0.6-1.0) Estimated GFR (Cockcroft-Gault) 84.0 BUN/Creatinine Ratio 36 (6-20) H Glucose Level 104 mg/dL (70-99) H Calcium Level 10.4 mg/dL (8.5-10.1) H Magnesium Level 2.2 mg/dL (1.8-2.4) Total Bilirubin 0.5 mg/dL (0.2-1.0) Aspartate Amino Transferase (AST) 16 U/L (15-37) Alanine Aminotransferase (ALT) 15 U/L (14-59) Alkaline Phosphatase 54 U/L (46-116) Troponin I High Sensitivity 6 ng/L (4-50) Total Protein 7.1 g/dL (6.4-8.2) Albumin 4.3 g/dL (3.4-5.0) Albumin/Globulin Ratio 1.5 (1.0-1.7) Lipase 64 U/L (73-393) L Laboratory Tests 01/16/22 21:12 Laboratory Tests 01/16/22 21:12 Vital Signs: Vital Signs Date Time Temp Pulse Resp B/P (MAP) Pulse Ox O2 Delivery O2 Flow Rate FiO2 01/16/22 20:45 98.3 77 22 146/81 (102) 100 Room Air 98.3 (BENJIE BENITEZ APRN) EKG: EKG: [] (BENJIE BENITEZ APRN) Radiology/Procedures: Radiology/Procedures: []PROCEDURE: CT ABD PELV W/ IV CONTRST ONLY PQRS Compliance Statement: One or more of the following individualized dose reduction techniques were utilized for this examination: 1. Automated exposure control 2. Adjustment of the mA and/or kV according to patient size 3. Use of iterative reconstruction technique CT abdomen/pelvis with contrast 01/16/2022 10:31 PM INDICATION: Nausea and vomiting COMPARISON: None available TECHNIQUE: Multiple axial CT images of the abdomen and pelvis were obtained after the intravenous administration of 75 mL Omnipaque 300. Coronal and sagittal reformats are provided. FINDINGS: Visualized portions of the lung bases are clear. Heart size is within normal limits. 1.4 cm hypoattenuating lesion within the inferior right hepatic lobe compatible with simple cyst (10 Hounsfield units). Liver is homogeneous in enhancement. Spleen, bilateral adrenal glands, and pancreas are normal in appearance. Gallbladder is present without adjacent inflammatory changes. The abdominal aorta is normal in course and caliber. There are no pathologically enlarged lymph nodes in the abdomen and pelvis. There is no abdominal free fluid. There is no free intraperitoneal air. Bilateral renal parapelvic cysts are identified. The kidneys enhance symmetrically. There is no suspicious renal mass. There is no hydronephrosis. There are no suspected calculi within the kidneys, ureters or urinary bladder. Calcified uterine fibroids are present measuring up to 1.8 cm. No suspicious adnexal mass. Urinary bladder is within normal limits given degree of distention. No suspicious osseous normality. IMPRESSION: No acute abnormality within the abdomen and pelvis. Electronically signed by: Valerie Whatley MD (01/16/2022 11:05 PM) [facility] DI[facility] and SIGNED BY: VALERIE WHATLEY MD DATE: 01/16/222251 PROCEDURE: PORTABLE CHEST 1V XR CHEST 1V 01/16/2022 9:23 PM INDICATION: Weakness COMPARISON: None available TECHNIQUE: Portable frontal view of the chest is provided. FINDINGS: The cardiomediastinal silhouette is within normal limits. Lungs are clear. There are no significant pleural effusions. There is no pulmonary vascular congestion. No pneumothorax. No suspicious osseous abnormality. Anterior cervical discectomy and fusion hardware is partially profiled. IMPRESSION: There is no acute cardiopulmonary process. Electronically signed by: Valerie Whatley MD (01/16/2022 9:46 PM) [facility] DI[facility]ATED and SIGNED BY: VALERIE WHATLEY MD DATE: 01/16/222144 (BENJIE BENITEZ APRN) Course & Med Decision Making: Course & Med Decision Making Pertinent Labs and Imaging studies reviewed. (See chart for details) This is a 66-year-old female patient presenting to the ED today complaining of nausea, upset stomach, feeling of fullness and dizziness for 6 weeks. Patient reports she has been seen by her own doctor and they have done multiple scans and lab work and there is no acute cause for her symptoms CBC with a WBC of 13.5, CMP with no acute findings. UA positive for UTI, discharged on cephalexin. Troponin and EKG are negative, CT of the abdomen and pelvis is negative, chest x-ray is negative. Discharge to home. Follow-up with PCP in 1 week (BENJIE BENITEZ APRN) Course & Med Decision Making Patients Care and treatment plan provided by ER Nurse Practitioner. I was available for consult. Patient's chart reviewed. (JEANINE RAMIREZ DO) Estefany Disclaimer: Estefany Disclaimer: This electronic medical record was generated, in whole or in part, using a voice recognition dictation system. (BENJIE BENITEZ APRN) Departure Departure Impression: Primary Impression: Dizziness Additional Impressions: Abdominal pain Qualified Codes: R10.9 - Unspecified abdominal pain Urinary tract infection Qualified Codes: N39.0 - Urinary tract infection, site not specified Disposition: HOME / SELF CARE / HOMELESS Condition: STABLE Referrals: BONNY GALAVIZ MD (PCP) follow up next week Patient Instructions: Abdominal Pain (Nonspecific), Dizziness, Urinary Tract Infection Additional Instructions: You were evaluated in the emergency room. We did a CT scan of your abdomen and pelvis which was negative for any acute findings, your chest x-ray was negative, your lab work was negative for any acute findings. You have urinary tract infection. Take the prescribed antibiotics until completed. Follow-up with your doctor in 1 to 2 weeks Scripts Cephalexin (CEPHALEXIN) 500 Mg Tablet 1 TAB PO BID, #14 TAB Prov: BENJIE BENITEZ APRN 01/17/22 Metoclopramide Hcl (REGLAN) 10 Mg Tablet 1 TAB PO TID, #30 TAB 0 Refills before food and bedtime Prov: BENJIE BENITEZ APRN 01/17/22 BENJIE BENITEZ APRN Jan 16, 2022 23:45 JEANINE RAMIREZ I DO Jan 17, 2022 19:12
[2022-01-17 00:42] LABS: BARBITURATES NEG (NEG); BENZODIAZEPINES NEG (NEG); CANNABINOIDS NEG (NEG); COCAINE NEG (NEG); METHADONE NEG (NEG); OPIATES NEG (NEG); PHENCYCLIDINE NEG (NEG)
[2022-01-17 00:43] LABS: AMPHETAMINE/METHAMPHETAMINE NEG (NEG)
[2022-01-17 00:44] LABS: BACTERIA,URINE FEW /HPF (0-FEW)
[2022-01-17 00:45] LABS: AMORPHOUS SEDIMENT,UR PRESENT /HPF
[2022-01-17] MEDS ORDERED: METO10TA81 PO (01:37)
[2022-01-17] MEDS ORDERED: CEPH500T PO (01:37)
[2022-01-17 01:48] VITALS: BP 139/78
[2022-01-17] MEDS ORDERED: IOHEXOL 300 MG/ML 100ML VIAL. ONE (03:32)
--- NOTE | 2022-01-17 07:21 | EKG ---
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
--- NOTE | 2022-01-17 07:55 | EKG ---
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
== END 2022-01-17 02:23 | disposition home or self-care (01) ==
LOC: ER 20:35
DX: N39.0 Urinary tract infection, site not specified (principal); R42 Dizziness and giddiness; E03.9 Hypothyroidism, unspecified
CPT/HCPCS: 36415; 71045; 74177; 80053; 80307; 81001; 83690; 83735; 84484; 85025; 87086; 93005; 96374; 96375; 99285; J2405; J3490; Q9967